=== PATIENT | male | born 1995 | race African-American/Black ===

== ENCOUNTER 2024-02-11 19:56 | Emergency (ER) | payer SELFPAY ==
[~2024-02-11] VITALS: Ht 170.2 cm; Wt 77.7 kg
[2024-02-11 20:37] VITALS: BP 139/89; PULSE 89; RESP 16; TEMP 97.8; O2SAT 98
== END 2024-02-11 20:39 ==
LOC: ER 19:57
DX: F10.129 Alcohol abuse with intoxication, unspecified (principal); R47.81 Slurred speech; V89.2XXA Person injured in unspecified motor-vehicle accident, traffic, initial encounter; Y93.89 Activity, other specified; Y92.89 Other specified places as the place of occurrence of the external cause; Y99.8 Other external cause status; Y90.9 Presence of alcohol in blood, level not specified
CPT/HCPCS: 99283